=== PATIENT | male | born 1945 | race Caucasian/White ===

== ENCOUNTER → 2016-11-11 | Outpatient (CLI) | payer MEDICARE, OTHER | LOC: SLEEP 11-04 14:38 | DX: G47.33 Obstructive sleep apnea (adult) (pediatric) (principal) | CPT/HCPCS: 95810 ==

== ENCOUNTER 2020-09-10 07:15 | Inpatient (IN) | payer MEDICARE, OTHER ==
[~2020-09-10] VITALS: Ht 175.3 cm; Wt 115.7 kg
[2020-09-10 09:01] LABS: HEMOGLOBIN 10.5 gm/dl (14.0-17.5); RED BLOOD COUNT 3.37 M/UL (4.20-5.50); WHITE BLOOD COUNT 3.9 K/UL (4.5-11.0)
[2020-09-10 12:35] LABS: BUN/CREATININE RATIO 16 (0-10)
[2020-09-10] MEDS ORDERED: ZOFRAN4 MG PO (14:00)
[2020-09-10] MEDS ORDERED: NOVOLOG FL100 UNIT/1 SC (14:01)
[2020-09-10] MEDS ORDERED: HYDROCHLOROTHIA25 MG PO (14:01)
[2020-09-10] MEDS ORDERED: LANTUS100 UNIT/1 SC (14:02)
[2020-09-10] MEDS ORDERED: ATACAND32 MG PO (14:02)
[2020-09-10] MEDS ORDERED: COREG 25MG TAB25 MG PO (14:03)
[2020-09-10] MEDS ORDERED: CRESTOR5 MG PO (14:04)
[2020-09-10] MEDS ORDERED: CLARITIN10 MG PO (14:04)
[2020-09-10] MEDS ORDERED: CATAPRES 0.1MG0.1 MG PO (14:04)
[2020-09-10] MEDS ORDERED: VITAMIN D 40400 UNIT PO (14:05)
[2020-09-10] MEDS ORDERED: ISOSORBIDE MONO60 MG PO (14:06)
[2020-09-10] MEDS ORDERED: LEVOTHYROXINE50 MC1 PO (14:06)
[2020-09-10] MEDS ORDERED: FERROUS SULFAT324 MG PO (14:06)
[2020-09-10] MEDS ORDERED: PROVENTIL HFA6.7 GM INH (14:07)
[2020-09-11 04:15] LABS: HEMOGLOBIN 10.8 gm/dl (14.0-17.5); RED BLOOD COUNT 3.51 M/UL (4.20-5.50); WHITE BLOOD COUNT 4.6 K/UL (4.5-11.0)
[2020-09-12 08:53] LABS: HEMOGLOBIN 9.2 gm/dl (14.0-17.5); RED BLOOD COUNT 3.06 M/UL (4.20-5.50); WHITE BLOOD COUNT 3.5 K/UL (4.5-11.0)
[2020-09-13 05:33] LABS: HEMOGLOBIN 9.9 gm/dl (14.0-17.5); RED BLOOD COUNT 3.23 M/UL (4.20-5.50)
[2020-09-13 05:44] LABS: WHITE BLOOD COUNT 4.7 K/UL (4.5-11.0)
[2020-09-13] MEDS ORDERED: DEXILANT60 MG PO (10:15)
== END 2020-09-13 14:29 | disposition home or self-care (01) | DRG 357 ==
LOC: ER1 07:15 → CDU 13:14 → CCU 17:46 → MED SURG 4 09-12 12:52
PROVIDERS: Emergency Medicine; Surgery; ADMIT Internal Medicine
PROC: 0DJV0ZZ Inspection of Mesentery, Open Approach (ICD-10-PCS; principal; 2020-09-10 15:00)
DX: K52.9 Noninfective gastroenteritis and colitis, unspecified (principal); N18.4 Chronic kidney disease, stage 4 (severe); E87.1 Hypo-osmolality and hyponatremia; C85.90 Non-Hodgkin lymphoma, unspecified, unspecified site; E87.2 Acidosis; I50.22 Chronic systolic (congestive) heart failure; I13.0 Hypertensive heart and chronic kidney disease with heart failure and stage 1 through stage 4 chronic kidney disease, or unspecified chronic kidney disease; K80.00 Calculus of gallbladder with acute cholecystitis without obstruction; N17.9 Acute kidney failure, unspecified; Z20.822 Contact with and (suspected) exposure to COVID-19; M10.20 Drug-induced gout, unspecified site; K59.00 Constipation, unspecified; I65.29 Occlusion and stenosis of unspecified carotid artery; E86.0 Dehydration; E11.22 Type 2 diabetes mellitus with diabetic chronic kidney disease; K44.9 Diaphragmatic hernia without obstruction or gangrene; I25.10 Atherosclerotic heart disease of native coronary artery without angina pectoris; K21.9 Gastro-esophageal reflux disease without esophagitis; E78.5 Hyperlipidemia, unspecified; K29.70 Gastritis, unspecified, without bleeding; D69.6 Thrombocytopenia, unspecified; E03.9 Hypothyroidism, unspecified; E66.01 Morbid (severe) obesity due to excess calories; E11.42 Type 2 diabetes mellitus with diabetic polyneuropathy; M10.9 Gout, unspecified; I34.0 Nonrheumatic mitral (valve) insufficiency; G47.33 Obstructive sleep apnea (adult) (pediatric); I35.0 Nonrheumatic aortic (valve) stenosis; E11.9 Type 2 diabetes mellitus without complications; Z79.4 Long term (current) use of insulin; Z88.6 Allergy status to analgesic agent; Z88.2 Allergy status to sulfonamides; Z88.8 Allergy status to other drugs, medicaments and biological substances; Z83.3 Family history of diabetes mellitus; Z82.49 Family history of ischemic heart disease and other diseases of the circulatory system; Z90.49 Acquired absence of other specified parts of digestive tract; I25.2 Old myocardial infarction; Z95.5 Presence of coronary angioplasty implant and graft
CPT/HCPCS: 0241U; 36415; 71045; 74018; 80048; 80053; 81001; 82550; 82553; 82962; 83605; 83690; 84484; 85025; 85027; 85610; 85730; 86850; 86900; 86901; 93005; 94760; 97161; 97166; 99285; C9113; J0690; J1100; J1335; J2001; J2270; J2370; J2405; J2704; J2710; J3010; J7030; J7120

== ENCOUNTER 2022-02-18 14:02 | Inpatient (IN) | payer MEDICARE, OTHER ==
[~2022-02-18] VITALS: Ht 175.3 cm; Wt 110.2 kg
[~2022-02-18 14:02] MED LIST: ATACAND32 MG PO; CATAPRES 0.1MG0.1 MG PO; CLARITIN10 MG PO; COREG 25MG TAB25 MG PO; CRESTOR10 MG PO; DEXILANT60 MG PO; FERROUS SULFAT324 MG PO; HYDROCHLOROTHIA25 MG PO; ISOSORBIDE MONO60 MG PO; LANTUS100 UNIT/1 SQ; LEVOTHYROXINE50 MCG PO; NOVOLOG FL100 UNIT/1 SC; PROVENTIL HFA6.7 GM INH; VITAMIN D325 MC6 PO; ZOFRAN4 MG PO
[2022-02-18 14:51] LABS: HEMOGLOBIN 10.6 gm/dl (14.0-17.5); RED BLOOD COUNT 3.46 M/UL (4.20-5.50); WHITE BLOOD COUNT 2.7 K/UL (4.5-11.0)
[2022-02-18] MEDS ORDERED: AMLODIPINE BESYL5 MG PO (18:52)
[2022-02-18] MEDS ORDERED: HYDRALAZINE HCL50 MG PO (18:53)
[2022-02-18] MEDS ORDERED: NOVOLOG FL100 UNIT/1 INJ (18:55)
[2022-02-19 06:20] LABS: HEMOGLOBIN 10.8 gm/dl (14.0-17.5); RED BLOOD COUNT 3.52 M/UL (4.20-5.50); WHITE BLOOD COUNT 2.6 K/UL (4.5-11.0)
--- NOTE | 2022-02-19 10:26 | NUR ---
ATTEMPTED TO NOTIFY [facility] OF 'S ORDER FOR MRI/MRA TO BE STAT. VOICEMAIL LEFT WITH NO RETURN CALL. WILL CONTINUE TO NOTIFY MRI.
--- NOTE | 2022-02-20 04:53 | NUR ---
pt has pulled off teley states its pulling his hairs and cant sleep does not want to put back on . notified [facility] and they stated they would contact house
[2022-02-20 06:54] LABS: HEMOGLOBIN 9.8 gm/dl (14.0-17.5); RED BLOOD COUNT 3.21 M/UL (4.20-5.50); WHITE BLOOD COUNT 2.3 K/UL (4.5-11.0)
[2022-02-20] MEDS ORDERED: CLOPIDOGREL75 MG PO (10:07)
== END 2022-02-20 11:47 | disposition home or self-care (01) | DRG 65 ==
LOC: ER1 14:02 → MED SURG 4 17:38 → CDU 17:38 → MED SURG 4 22:49
PROVIDERS: Emergency Medicine; Internal Medicine; ADMIT Family Medicine
DX: I63.9 Cerebral infarction, unspecified (principal); C91.10 Chronic lymphocytic leukemia of B-cell type not having achieved remission; N18.4 Chronic kidney disease, stage 4 (severe); N30.00 Acute cystitis without hematuria; D61.818 Other pancytopenia; I25.10 Atherosclerotic heart disease of native coronary artery without angina pectoris; E78.5 Hyperlipidemia, unspecified; D63.1 Anemia in chronic kidney disease; E03.9 Hypothyroidism, unspecified; I35.0 Nonrheumatic aortic (valve) stenosis; D50.9 Iron deficiency anemia, unspecified; D69.6 Thrombocytopenia, unspecified; I12.9 Hypertensive chronic kidney disease with stage 1 through stage 4 chronic kidney disease, or unspecified chronic kidney disease; H53.9 Unspecified visual disturbance; E78.00 Pure hypercholesterolemia, unspecified; I65.21 Occlusion and stenosis of right carotid artery; E11.22 Type 2 diabetes mellitus with diabetic chronic kidney disease; Z79.4 Long term (current) use of insulin; Z79.01 Long term (current) use of anticoagulants; Z79.82 Long term (current) use of aspirin; Z88.1 Allergy status to other antibiotic agents; Z88.2 Allergy status to sulfonamides; Z82.49 Family history of ischemic heart disease and other diseases of the circulatory system; Z83.3 Family history of diabetes mellitus
CPT/HCPCS: 36415; 70450; 70544; 70551; 71046; 80048; 80053; 81001; 82550; 82553; 82962; 84484; 85025; 85027; 87040; 87086; 93005; 96374; 99285; J0696; U0002